=== PATIENT | female | born 1935 | race Caucasian/White ===

== ENCOUNTER → 2017-06-30 | Outpatient (CLI) | payer OTHER ==
[~2017-06-30] MED LIST: CIPROFLOXACIN500 M1 PO; FLAGYL500 MG PO; MELOXICAM7.5 MG; NORCO 5-325 TA1 EACH PO; PROTONIX40 M2 PO; SYMBICORT160 MCG/4.; XOPENEX0.63 MG/3; ZOFRAN ODT4 MG PO; ZPAK PO
== END ==
LOC: RAD 09:45
DX: J45.909 Unspecified asthma, uncomplicated (principal); J44.9 Chronic obstructive pulmonary disease, unspecified; I10 Essential (primary) hypertension